=== PATIENT | male | born 1975 | race Caucasian/White ===

== ENCOUNTER → 2019-02-17 09:46 | Outpatient (CLI) | payer OTHER, SELFPAY ==
[2019-02-21 09:08] LABS: Testosterone, Free 8.36 ng/dL (5.00-21.00)
[2019-02-21 11:20] LABS: Testosterone, % Free 2.09 % (1.50-4.20); Testosterone, Total 400 ng/dL (264-916)
== END ==
DX: E29.1 Testicular hypofunction (principal)
CPT/HCPCS: 36415; 82670; 84402; 84403

== ENCOUNTER → 2019-03-31 09:20 | Outpatient (CLI) | payer OTHER, SELFPAY ==
[2019-03-31 10:30] LABS: Hematocrit 45.4 % (40-54); Hemoglobin 15.3 g/dl (13.0-16.5)
[2019-03-31 11:01] LABS: Estradiol 44.6 pg/mL
== END ==
PROVIDERS: Family Provider Family Medicine; PCP Family Medicine
DX: E29.1 Testicular hypofunction (principal)
CPT/HCPCS: 36415; 82670; 84403; 85014; 85018

== ENCOUNTER → 2019-04-21 11:20 | Outpatient (CLI) | payer OTHER, SELFPAY ==
[2019-04-21 12:33] LABS: CRP < 2.90 mg/L (0.0-3.0); Cholesterol 216 mg/dL (200); High Density Lipoprotein 47 mg/dL; Thyroid Stim Hormone (TSH) 1.23 uIU/mL (0.358-3.74); Triglycerides 63 mg/dL; Very Low Density Lipoprotein 13 mg/dL (5-40)
== END ==
PROVIDERS: Family Provider Family Medicine; PCP Family Medicine; Referring Provider Family Medicine; Visit Provider Family Medicine
DX: E78.00 Pure hypercholesterolemia, unspecified (principal); Z82.49 Family history of ischemic heart disease and other diseases of the circulatory system
CPT/HCPCS: 36415; 80061; 84443; 86140